=== PATIENT | female | born 1945 | race Caucasian/White ===

== ENCOUNTER → 2016-11-30 | Outpatient (CLI) | payer MEDICARE ==
[~2016-11-30] MED LIST: ACET325T14 PO; ALPR0.254 PO; AMLO5TAB2 PO; ASPI-621 PO; ATEN50TA41 PO; ATOR20TA PO; CLOP75TA PO; DOCU-30 PO; FURO20TA3 PO; HYDR-3144 PO; IPRA3AMP IPPB; METO50TA82 PO/NG; PANT20TA3 PO
== END | disposition home or self-care (01) ==
LOC: CARD 08:25
PROVIDERS: ATTEND Registered Nurse
DX: G46.4 Cerebellar stroke syndrome (principal)
CPT/HCPCS: 95819

== ENCOUNTER → 2017-02-17 | Outpatient (CLI) | payer MEDICARE | END | disposition home or self-care (01) | LOC: CFH 15:18 | PROVIDERS: ATTEND Nurse Practitioner Family | DX: S83.242A Other tear of medial meniscus, current injury, left knee, initial encounter (principal); S83.282A Other tear of lateral meniscus, current injury, left knee, initial encounter; M71.22 Synovial cyst of popliteal space [Baker], left knee; M25.462 Effusion, left knee; X58.XXXA Exposure to other specified factors, initial encounter; Y93.89 Activity, other specified; Y92.89 Other specified places as the place of occurrence of the external cause; Y99.8 Other external cause status ==

== ENCOUNTER 2019-07-15 11:01 | Inpatient (IN) | payer MEDICARE ==
[~2019-07-15] VITALS: Ht 177.8 cm; Wt 100.7 kg
[~2019-07-15 11:01] MED LIST changes: +AMLO-150 PO; -AMLO5TAB2 PO; -ASPI-621 PO; +ASPI81TA45 PO; +DOCU-131 PO; -DOCU-30 PO; -HYDR-3144 PO; +HYDR-3245 PO; -IPRA3AMP IPPB; +IPRA3AMP30 IPPB
[2019-07-15] MEDS ORDERED: SODIUM CHLORIDE FLUSH 10ML SYR IVF ONE (12:00)
[2019-07-15 12:30] LABS: ALANINE AMINOTRANSFERASE 22 U/L (12-78); ALBUMIN 3.5 g/dL (3.4-5.0); ANION GAP 8 mmol/L (5-15); CALCIUM 9.1 mg/dL (8.5-10.1); CHLORIDE 99 mmol/L (98-107)
[2019-07-15 12:32] LABS: ALKALINE PHOSPHATASE 78 U/L (45-117); BILIRUBIN,TOTAL 0.5 mg/dL (0.2-1.0); TOTAL PROTEIN 7.8 g/dL (6.4-8.2)
[2019-07-15 12:37] LABS: BASOPHILS # (AUTO) 0.02 x10^3/uL (0-0.1); BASOPHILS % (AUTO) 1 % (0-1); EOSINOPHILS # (AUTO) 0.07 x10^3/uL (0-0.4); EOSINOPHILS % (AUTO) 2 % (1-7); LYMPHOCYTES % (AUTO) 23 % (22-44); MD NO; MEAN CORPUSCULAR HEMOGLOBIN 29.4 pg (27.0-34.8); MEAN CORPUSCULAR HGB CONC 32.8 g/dL (32.4-35.8); MEAN CORPUSCULAR VOLUME 89.4 fL (80-100); MEAN PLATELET VOLUME 8.7 fL (7.4-10.4); MONOCYTES # (AUTO) 0.36 x10^3/uL (0.2-0.8); MONOCYTES % (AUTO) 9 % (2-9); NEUTROPHILS # (AUTO) 2.54 x10^3/uL (1.8-6.8); NEUTROPHILS % (AUTO) 65 % (42-75); PLATELET COUNT 322 x10^3/uL (130-400); RED BLOOD COUNT 4.56 x10^6/uL (3.82-5.3); RED CELL DISTRIBUTION WIDTH 13.4 % (9.6-15.2)
--- NOTE | 2019-07-15 13:41 | NUR ---
PT STATES THAT SHE WAS DIANGOSED WITH DIVERTICULITIS AT [facility] EARLIER THIS WEEK, AND TOOK PRESCRIBED MEDICATIONS ORDERED FOR 3 DAYS. HOWEVER, PT STOPPED THE MEDICATION YESTERDAY DUE TO IT MAKING HER NAUSEOUS. PT CONTINUES TO HAVE ABD PAIN AND CRAMPING. IV START ATTEMPT UNSUCCESSFUL, ULTRASOUND IV REQUESTED. PT IN IMAGING AT THIS TIME.
--- NOTE | 2019-07-15 13:56 | NUR ---
PT RETURNED FROM CT AT THIS TIME.
--- NOTE | 2019-07-15 14:23 | NUR ---
PT UP TO RESTROOM, NO ASSISTANCE NECESSARY. IV ANTIBIOTICS INFUSING WITHOUT ISSUE. PT DENIES ANY NEEDS OR CONCERNS AT THIS TIME. CALL LIGHT IN REACH.
[2019-07-15] MEDS ORDERED: METRONIDAZOLE PMX 500MG/100ML 100 ML IV ONE (14:30)
[2019-07-15] MEDS ORDERED: AMPICILLIN/SULBACTAM 3 GM in SODIUM CHLORIDE 0.9% 100 ML IV ONE (14:30)
[2019-07-15] MEDS ORDERED: SODIUM CHLORIDE 0.9% 1,000ML IVBOLUS ONE (14:30)
[2019-07-15 14:33] LABS: CULTURE INDICATED? YES; MICROSCOPIC AUTO
--- NOTE | 2019-07-15 14:46 | NUR ---
REPORT CALLED TO LANI OROURKE RN. PT DENIES ANY NEEDS OR CONCERNS AT THIS TIME. CALL LIGHT IN REACH, AWAITING TRANSPORT AT THIS TIME.
[2019-07-15] MEDS ORDERED: ACETAMINOPHEN 325 MG TABLET PO PRN (15:30)
[2019-07-15] MEDS: HEPARIN 5,000 UNITS/ML, 1ML SQ SCH ×2 (16:19→22:54)
[2019-07-15] MEDS: SODIUM CHLORIDE 0.9% 1,000 ML IV SCH (16:19)
[2019-07-15 19:29] VITALS: BP 136/79
[2019-07-15] MEDS: AMPICILLIN/SULBACTAM 3 GM in SODIUM CHLORIDE 0.9% 100 ML IV SCH (20:21)
[2019-07-15] MEDS ORDERED: ATORVASTATIN 20 MG TABLET PO SCH (21:00)
[2019-07-16 00:20] VITALS: BP 121/76
[2019-07-16] MEDS: AMPICILLIN/SULBACTAM 3 GM in SODIUM CHLORIDE 0.9% 100 ML IV SCH ×3 (02:07→14:35)
[2019-07-16] MEDS: SODIUM CHLORIDE 0.9% 1,000 ML IV SCH (04:12)
[2019-07-16 05:37] LABS: BASOPHILS # (AUTO) 0.03 x10^3/uL (0-0.1); BASOPHILS % (AUTO) 1 % (0-1); EOSINOPHILS # (AUTO) 0.15 x10^3/uL (0-0.4); EOSINOPHILS % (AUTO) 4 % (1-7); LYMPHOCYTES # (AUTO) 1.48 x10^3/uL (1-3.4); LYMPHOCYTES % (AUTO) 41 % (22-44); MD NO; MEAN CORPUSCULAR HEMOGLOBIN 29.8 pg (27.0-34.8); MEAN CORPUSCULAR HGB CONC 32.7 g/dL (32.4-35.8); MEAN CORPUSCULAR VOLUME 91.2 fL (80-100); MEAN PLATELET VOLUME 8.9 fL (7.4-10.4); MONOCYTES # (AUTO) 0.52 x10^3/uL (0.2-0.8); MONOCYTES % (AUTO) 14 % (2-9); NEUTROPHILS # (AUTO) 1.48 x10^3/uL (1.8-6.8); NEUTROPHILS % (AUTO) 40 % (42-75); PLATELET COUNT 272 x10^3/uL (130-400); RED BLOOD COUNT 4.16 x10^6/uL (3.82-5.3); RED CELL DISTRIBUTION WIDTH 13.4 % (9.6-15.2)
[2019-07-16 05:57] LABS: CALCIUM 8.5 mg/dL (8.5-10.1); CHLORIDE 101 mmol/L (98-107)
[2019-07-16 06:04] LABS: ALANINE AMINOTRANSFERASE 20 U/L (12-78); ALBUMIN 2.9 g/dL (3.4-5.0); ALKALINE PHOSPHATASE 63 U/L (45-117); ANION GAP 5 mmol/L (5-15); BILIRUBIN,TOTAL 0.4 mg/dL (0.2-1.0); CREATININE 1.31 mg/dL (0.55-1.02); TOTAL PROTEIN 6.3 g/dL (6.4-8.2)
[2019-07-16 06:39] VITALS: BP 150/78
[2019-07-16] MEDS: HEPARIN 5,000 UNITS/ML, 1ML SQ SCH ×2 (07:27→14:35)
[2019-07-16] MEDS ORDERED: PANTOPRAZOLE 40 MG IV IVPush SCH (07:30)
[2019-07-16] MEDS ORDERED: METOPROLOL TARTRATE 50 MG TABLET ONE (10:22)
[2019-07-16] MEDS ORDERED: METOPROLOL TARTRATE 25 MG TABLET PO SCH (10:30)
[2019-07-16] MEDS ORDERED: LOSARTAN 50MG TABLET PO SCH ×2 (10:30→21:00)
[2019-07-16] MEDS ORDERED: ASPIRIN 325 MG TABLET EC PO SCH (10:30)
[2019-07-16] MEDS ORDERED: ASPI-650 PO (10:35)
[2019-07-16] MEDS ORDERED: METO25TA35 PO (10:35)
[2019-07-16] MEDS ORDERED: FURO20TA3 PO (10:35)
[2019-07-16] MEDS ORDERED: LOSA50TA14 PO (10:35)
[2019-07-16] MEDS ORDERED: ONDA4TAB7 PO (13:30)
[2019-07-16] MEDS ORDERED: AMOX1TAB64 PO (13:30)
[2019-07-16 14:05] VITALS: BP 128/87
[2019-07-18] MEDS ORDERED: FUROSEMIDE 20 MG TABLET PO SCH (09:00)
== END 2019-07-16 16:30 | disposition home or self-care (01) | DRG 391 ==
LOC: ED 13:10 → 3N 14:57
PROVIDERS: ADMIT Internal Medicine; ATTEND Internal Medicine
DX: K57.32 Diverticulitis of large intestine without perforation or abscess without bleeding (principal); N17.0 Acute kidney failure with tubular necrosis; E87.1 Hypo-osmolality and hyponatremia; E78.5 Hyperlipidemia, unspecified; K27.9 Peptic ulcer, site unspecified, unspecified as acute or chronic, without hemorrhage or perforation; I12.9 Hypertensive chronic kidney disease with stage 1 through stage 4 chronic kidney disease, or unspecified chronic kidney disease; I25.10 Atherosclerotic heart disease of native coronary artery without angina pectoris; N18.9 Chronic kidney disease, unspecified; K21.9 Gastro-esophageal reflux disease without esophagitis; Z82.49 Family history of ischemic heart disease and other diseases of the circulatory system; Z87.891 Personal history of nicotine dependence; Z87.11 Personal history of peptic ulcer disease; Z95.1 Presence of aortocoronary bypass graft
CPT/HCPCS: 36415; 74176; 80053; 81001; 83690; 85025; 87086; G0378; J0295; J1644; C9113; J7030

== ENCOUNTER 2020-04-20 01:43 | Emergency (ER) | payer MEDICARE ==
[~2020-04-20] VITALS: Ht 177.8 cm; Wt 102.3 kg
[~2020-04-20 01:43] MED LIST changes: +AMOX1TAB64 PO; +ASPI-650 PO; +LOSA50TA14 PO; +METO25TA35 PO; +ONDA4TAB7 PO
--- NOTE | 2020-04-20 02:05 | NUR ---
assessment made. ERP at bedside.
[2020-04-20 02:09] LABS: BASOPHILS # (AUTO) 0.02 x10^3/uL (0-0.1); BASOPHILS % (AUTO) 0 % (0-1); EOSINOPHILS # (AUTO) 0.25 x10^3/uL (0-0.4); EOSINOPHILS % (AUTO) 4 % (1-7); LYMPHOCYTES # (AUTO) 1.58 x10^3/uL (1-3.4); LYMPHOCYTES % (AUTO) 24 % (22-44); MD NO; MEAN CORPUSCULAR HEMOGLOBIN 29.3 pg (27.0-34.8); MEAN CORPUSCULAR HGB CONC 33.3 g/dL (32.4-35.8); MEAN CORPUSCULAR VOLUME 87.9 fL (80-100); MEAN PLATELET VOLUME 8.3 fL (7.4-10.4); MONOCYTES # (AUTO) 0.82 x10^3/uL (0.2-0.8); MONOCYTES % (AUTO) 12 % (2-9); NEUTROPHILS # (AUTO) 3.97 x10^3/uL (1.8-6.8); NEUTROPHILS % (AUTO) 60 % (42-75); PLATELET COUNT 278 x10^3/uL (130-400); RED BLOOD COUNT 4.59 x10^6/uL (3.82-5.3); RED CELL DISTRIBUTION WIDTH 14.5 % (9.6-15.2)
--- NOTE | 2020-04-20 02:10 | NUR ---
blood drawn by microbiological laboratory technician. X ray done. awaiting results. denies CP/SOB.
[2020-04-20 02:20] LABS: ALANINE AMINOTRANSFERASE 22 U/L (12-78); ALBUMIN 3.7 g/dL (3.4-5.0); ANION GAP 8 mmol/L (5-15); CALCIUM 9.4 mg/dL (8.5-10.1); CHLORIDE 106 mmol/L (98-107); CREATININE 1.52 mg/dL (0.55-1.02)
[2020-04-20 02:25] LABS: ALKALINE PHOSPHATASE 124 U/L (45-117); BILIRUBIN,TOTAL 0.3 mg/dL (0.2-1.0); T4 (THYROXINE) 10.6 mcg/dL (4.8-13.9); TOTAL PROTEIN 7.9 g/dL (6.4-8.2); TROPONIN I < 0.015 ng/mL (0.000-0.045)
[2020-04-20 04:33] VITALS: BP 133/66
== END 2020-04-20 04:36 | disposition home or self-care (01) ==
LOC: ED 02:13
DX: R00.2 Palpitations (principal); I10 Essential (primary) hypertension; E78.5 Hyperlipidemia, unspecified; R07.9 Chest pain, unspecified; Z87.891 Personal history of nicotine dependence
CPT/HCPCS: 36415; 71045; 80053; 83735; 84436; 84443; 84484; 85025; 93005; 99285